=== PATIENT | female | born 1965 | race Caucasian/White ===

== ENCOUNTER 2017-03-23 13:04 | Day surgery (SDC) | payer OTHER ==
[~2017-03-23] VITALS: Ht 162.6 cm; Wt 65.0 kg
[~2017-03-23 13:04] MED LIST: LORC10TA PO; NEXI40CA PO
[2017-03-23] MEDS ORDERED: ALIG4CAP PO (13:47)
[2017-03-23] MEDS ORDERED: SILD20TA11 PO (13:47)
[2017-03-23] MEDS ORDERED: SYNT175T PO (13:47)
[2017-03-23] MEDS ORDERED: DOXY100C PO (13:47)
[2017-03-23] MEDS ORDERED: VITA2000 PO (13:47)
[2017-03-23] MEDS ORDERED: ASPI1CHW4 CHEW (13:47)
[2017-03-23] MEDS ORDERED: LINA145C PO (13:47)
[2017-03-23] MEDS ORDERED: FURO1TAB60 PO (13:47)
[2017-03-23] MEDS ORDERED: FAMO1TAB37 PO (13:47)
[2017-03-23] MEDS ORDERED: CITRTAB11 PO (13:47)
[2017-03-23] MEDS ORDERED: DEXI60CA3 (13:47)
[2017-03-23] MEDS ORDERED: FLEC1TAB8 PO (13:47)
[2017-03-23] MEDS ORDERED: GABA100C4 PO (13:47)
[2017-03-23] MEDS ORDERED: POTA10CA PO (13:47)
[2017-03-23 13:48] VITALS: BP 138/92; PULSE 71; RESP 16; TEMP 98.2; O2SAT 100
[2017-03-23] MEDS ORDERED: SODIUM CHLORID 0.9% 500 ML INJ 500 ML IV SCH (14:00)
[2017-03-23] MEDS ORDERED: METOPROLOL TARTRATE 25 MG TAB PO PRN (14:00)
[2017-03-23] MEDS ORDERED: CHLORHEXIDINE GLUCONATE 2 % 1 PACK (2 CLOTHS) TOPICAL PRN (14:00)
[2017-03-23] MEDS ORDERED: POVIDONE IODINE 5% (ANTISEPSIS KIT) 4 APPLICATIONS EACH NARE PRN (14:00)
[2017-03-23] MEDS ORDERED: LACTATED RINGER'S 1000 ML IV PRN (14:00)
[2017-03-23] MEDS ORDERED: SODIUM CHLORID 0.9% 500 ML IV PRN (14:00)
[2017-03-23] MEDS ORDERED: LORazepam 1 MG TAB SL SCH (14:00)
[2017-03-23 14:28] LABS: BASOPHIL # 0.1 TH/MM3 (0-0.2); BASOPHIL % 0.7 % (0.0-2.0); EOSINOPHIL # 0.1 TH/MM3 (0-0.4); EOSINOPHIL % 1.1 % (0.0-4.0); HEMATOCRIT 42.8 % (35.0-46.0); HEMO FLAGS DIFF FINAL; LYMPHOCYTE # 2.2 TH/MM3 (1.0-4.8); MEAN CELL VOLUME 92.1 FL (80.0-100.0); MEAN CORPUSCULAR HEMOGLOBIN 30.5 PG (27.0-34.0); MEAN CORPUSCULAR HGB CONC 33.1 % (32.0-36.0); MONO % 5.5 % (0.0-8.0); NEUT % 67.7 % (16.0-70.0); PLATELET COUNT 318 TH/MM3 (150-450); RED BLOOD COUNT 4.65 MIL/MM3 (4.00-5.30); RED CELL DISTRIBUTION WIDTH 14.3 % (11.6-17.2); WHITE BLOOD COUNT 8.9 TH/MM3 (4.0-11.0)
[2017-03-23 14:41] LABS: APTT (PATIENT) 29.2 SEC (24.3-30.1); INTERNATIONAL NORMALIZED RATIO 1.1 RATIO; PROTHROMBIN TIME - PATIENT 11.1 SEC (9.8-11.6)
[2017-03-23 14:54] LABS: BICARBONATE 30.9 MEQ/L (21.0-32.0); POTASSIUM 3.3 MEQ/L (3.5-5.1)
[2017-03-23] MEDS ORDERED: HEPARIN-NS/PF INJ 1,000 ML ONE (15:23)
[2017-03-23] MEDS ORDERED: SODIUM CHLOR 0.9% 250 ML INJ 250 ML ONE (16:32)
[2017-03-23] MEDS ORDERED: ISOPROTERENOL HCL 1 MG/5 ML AMP ONE (16:33)
--- NOTE | 2017-03-23 16:51 | CATHPROC ---
[facility] HIS Report Study Information Study Number Admission Scheduled Start Study Start [id number] Mar 23 2017 1:04PM 03/23/2017 Mar 23 2017 2:50PM [place] [facility] Electrophysiology Study Admit Source Facility Department Other [facility] - [employer] Physician and Clinical Staff Initial Tashia Aguirre Patrol Police Lieutenant Zara Bass,RT(R) TECH2 Patrol Police Lieutenant Linda Scott,SOLE EDGE INKER MACHINE TECH2 Other Anesthesia, CHICKEN SEXER Recorder Juanita Cohn,MONICA Recorder Edna Lowery,MONICA Scrub Julio Watson,RT(R) Equipment Time Recycling Assistant Description Size Mfg Part Number Used/Scraped [id number] 15:40 BUNDLE-[employer] CATHETER, JSN, QUAD BUNDLE FR 5 *[id number] Used BUNDLE [id number] 15:41 BUNDLE-[employer] CATHETER, JSN, QUAD BUNDLE FR 5 *[id number]- Used BUNDLE [id number] 15:41 BUNDLE-[employer] CATHETER, JSN, QUAD BUNDLE FR 5 *[id number]- Used BUNDLE [id number] 15:41 BUNDLE-[employer] CATHETER, JSN, QUAD BUNDLE FR 5 *[id number]- Used BUNDLE [id number] 14:56 MEDLINE IND[employer]ES PACK, CCL CUSTOM * Used *[id number] 14:56 MEDLINE PACER CORTÉS, LIMB * 2530 *[id number] Used [id number] 14:56 [employer] MEDICAL BLANKET,WARM AIR CCL * Used *[id number] 14:56 [employer] MEDICAL ELECTRODE KIT, SUZETTE X SURFACE * Used *[id number] 15:42 [employer] MED[employer] SHEATH, EPS, FR5 FAST CATH FR 5 Used *[id number] 15:42 [employer] MED[employer] SHEATH, EPS, FR5 FAST CATH FR 5 Used *[id number] 15:42 [employer] MEDICAL SHEATH, EPS, FR5 FAST CATH FR 5 Used *[id number] 15:42 [employer] MED[employer] SHEATH, EPS, FR6 FAST CATH FR 6 Used *[id number] 15:42 [employer] MED[employer] SHEATH, EPS, FR8 FAST CATH FR 8 Used *[id number] [facility] PAD, ELECTROSURGICAL 14:56 * [id number] *[id number] Used SURGICAL GROUNDING (BLUE) History: Allergies Allergy Reaction Sulfa (Sulfonamide Antibiotics) sucralfate latex History: Risk Factors Dyslipidemia Previous [facility] Yes Yes Diabetes Labs Hgb (g/dl) Hct (%) RBC (MIL/MM3) WBC (l/cumm) Platelets (thousands) 11.60-17.00 35.00-51.00 4.00-5.90 4.00-11.00 150.00-450.00 14.0 42 6.5 8.9 318 Glucose (mg/dl) BUN (mg/dl) Creatinine (mg/dl) BUN:Creatinine (1:x) 74.00-106.00 7.00-18.00 0.50-1.30 10.00-20.00 70 11 0.8 13.8 Na (meq/l) K (meq/l) Cl (meq/l) CO2 (mmol/L) Ca (mg/dl) 136.00-145.00 3.50-5.10 98.00-107.00 21.00-32.00 8.50-10.10 141 3.3 102 30.9 8.1 PT (sec) PTT (sec) INR (PTT:PT) 9.80-11.60 24.30-30.10 0.90-1.10 11 29 1.1 Medication Medication Total Dose (Bolus/Oral) Medication Total Dosage/Unit 1% XYLOCAINE 40 mL Medications (Bolus/Oral) Medication Time Given Dosage/Unit Administered By Reason 1% XYLOCAINE 03/23/2017 4:17:47 PM 20 mL Tashia Estevez 20 mL 1% XYLOCAINE given in lab by Tashia Estevez in Left Groin via Subcutaneous. Ordered by Al Estevez. 1% XYLOCAINE 03/23/2017 4:21:30 PM 20 mL Tashia Estevez 20 mL 1% XYLOCAINE given in lab by Tashia Estevez in Right Groin via Subcutaneous. Ordered by Ramona Estevez. Medication (Drip) Medication Time Given Dosage/Unit Concentration/Unit Diluent (ml) Solution ISUPREL 03/23/2017 4:35:45 PM 2 mcg/min 1 mg 250 NaCl .9 2 mcg/min ISUPREL given in lab by Tashia Estevez via Peripheral IV. Pump/Drip Flow = 30 ml/hr using Na Cl .9 with a concentration of 1 mg in 250 ml. Ordered by Tashia Estevez. Reason: As per physicians verbal order. Initial Case Assessment Cardiovascular HR Rhythm NIBP Chest Pain 67 reg 121/67 0 Edema Present Skin color Skin None Normal Warm Dry Circulatory - Right Pulses Dorsalis Pedis 1 Scale (0,1,2,3,4,d) Circulatory - Left Pulses Dorsalis Pedis 1 Scale (0,1,2,3,4,d) Circulatory - Lower Extremities Color Lower Right Color Lower Left Normal Normal Neurological State Oriented to time-place- Alert Moves all extremities person Respiration - General Respiration Rate SpO2 (%) (B/min) 20 97 Final Case Assessment Cardiovascular HR Rhythm NIBP Chest Pain 94 sr 101/58 0 Edema Present Skin color Skin None Normal Warm Dry Circulatory - Right Pulses Dorsalis Pedis 1 Scale (0,1,2,3,4,d) Circulatory - Left Pulses Dorsalis Pedis 1 Scale (0,1,2,3,4,d) Circulatory - Lower Extremities Color Lower Right Color Lower Left Normal Normal Neurological State Lethargic Moves all extremities Respiration - General Respiration Rate SpO2 (%) O2 (lpm) (B/min) 14 97 6 Chronological Log Time Study Chronological Log 15:02:00 Dr. Estevez notified of labs. 15:25:48 Patient arrived via Bed. 15:25:49 Patient Name, D.O.B, / Armband Verified By R.N. 15:25:50 Consent signed by the physician and the patient and verified by the [employer] staff. 15:25:50 Pre-op and post- op instructions given; patient acknowledges understanding of instructions. 15:25:51 Verbal Stimulation=2 Physical Stimulation=2 Airway=2 Respiration=2 TOTAL=8. (0=absent, 1=li mited, 2=present) 15:26:00 Patient has been NPO for More than 6Hrs. 15:26:01 Skin Breakdown- legs reddened 15:26:08 Patient Warmer Placed on the Table. 15:26:09 Disposable Defibrillator Pads Placed On Patient. 15:26:09 Yue Prominences Protected 15:26:11 A # 20 IV was noted in the Forearm (left). Grade = 0 0.9ns kvo 15:26:25 A # 20 IV was noted in the Forearm (right). Grade = 0 0.9ns kvo 15:26:40 History and physical on the chart. Assessment: Initial Case, HR=67 BPM, Rhythm=reg, XGXA=664/67 mmhg, Chest Pain=0, Edema=None, Co mary lou=Normal, Skin = Warm, Dry Right Pulses: Seb Ped=1 Left Pulses: Seb Ped=1 15:35:15 Lower Right Extremities: Color=Normal Lower Left Extremities: Color=Normal Neurological: State=Alert, Ox3, MOTTA Respiration: Resp=20 B/min, SpO2=97 % 15:38:41 Table restraints applied according to hospital policy 15:42:50 [facility] Rep Shital present for case - device disabled for procedure per Dr. Estevez. 15:45:08 Reference ECG taken 15:45:09 Bilateral groins prepped with 2% chlorhexidine, and draped after a 3 minute waiting time. 15:48:16 Sterile drape applied. 15:57:02 Anesthesia at bedside. Assumes care of patient. 16:10:14 MD paged 16:13:01 MD arrived. Time Out. Correct patient, procedure, procedure equipment, site and side verified with physicia n present. Time 16:17:05 concurred by MD, individual staff and CHICKEN SEXER. Time Out #2 - Consents verified, patient in correct position, all results are labled and displa yed, safety precautions 16:17:29 taken, antibiotics administered. Time out concurred by MD, individual staff and CHICKEN SEXER in procedu re 16:17:42 Case Start 16:17:47 20 mL 1% XYLOCAINE given in lab by Tashia Estevez in Left Groin via Subcutaneous. Ordered by Tashia Estevez. 16:19:25 Vascular access was obtained in the Fem Vein (left). 16:19:28 Vascular access was obtained in the Fem Vein (left). 16:19:29 Vascular access was obtained in the Fem Vein (left). 16:19:32 A SHEATH, EPS, FR5 FAST CATH FR 5 was advanced into the Fem Vein (left) using the Modified Seldinger technique. 16:19:33 A SHEATH, EPS, FR5 FAST CATH FR 5 was advanced into the Fem Vein (left) using the Modified Seldinger technique. 16:19:34 A SHEATH, EPS, FR5 FAST CATH FR 5 was advanced into the Fem Vein (left) using the Modified Seldinger technique. 16:21:30 20 mL 1% XYLOCAINE given in lab by Tashia Estevez in Right Groin via Subcutaneous. Ordered b y Tashia Estevez. 16:21:39 Vascular access was obtained in the Fem Vein (right). 16:21:42 Vascular access was obtained in the Fem Vein (right). 16:21:47 A SHEATH, EPS, FR6 FAST CATH FR 6 was advanced into the Fem Vein (right) using the Modified Seldinger technique. 16:22:01 A SHEATH, EPS, FR8 FAST CATH FR 8 was advanced into the Fem Vein (right) using the Modified Seldinger technique. A CATHETER, JSN, QUAD BUNDLE FR 5 was advanced vis Fem Vein (right) and placed in the CS. Place ment was 16:24:31 visually confirmed under fluoroscopy. A CATHETER, JSN, QUAD BUNDLE FR 5 was advanced vis Fem Vein (right) and placed in the HIS. Plac ement was 16:24:54 visually confirmed under fluoroscopy. A CATHETER, JSN, QUAD BUNDLE FR 5 was advanced vis Fem Vein (right) and placed in the HRA. Plac ement was 16:25:05 visually confirmed under fluoroscopy. A CATHETER, JSN, QUAD BUNDLE FR 5 was advanced vis Fem Vein (right) and placed in the RVA. Plac ement was 16:25:19 visually confirmed under fluoroscopy. 16:26:29 EP study in progress. 2 mcg/min ISUPREL given in lab by Tashia Estevez via Peripheral IV. Pump/Drip Flow = 30 ml/hr us ing NaCl .9 with a 16:35:45 concentration of 1 mg in 250 ml. Ordered by Tashia Estevez. Reason: As per physicians verbal ord er. 16:43:31 Isuprel off. 16:43:50 EP Procedure was performed. Eps only. 16:45:00 Catheter(s) removed without difficulty 16:45:12 DOCU called. Spoke to Bisi 16:45:15 Bedside Report will be given. 16:45:47 Sheath(s) left in place, secured, 0.9ns kvo connected and will be removed in Holding Area 16:46:05 Case End 16:46:07 No case complications noted. 16:46:11 Cine recording checked. Assessment: Final Case, HR=94 BPM, Rhythm=sr, PIPW=774/58 mmhg, Chest Pain=0, Edema=None, [place] r=Normal, Skin = Warm, Dry Right Pulses: Seb Ped=1 Left Pulses: Seb Ped=1 16:46:39 Lower Right Extremities: Color=Normal Lower Left Extremities: Color=Normal Neurological: State=Lethargic, MOTTA Respiration: Resp=14 B/min, SpO2=97 %, O2=6 lpm 16:52:31 Patient moved to stretcher 16:55:17 Defibrillator and ground pads removed. Skin intact. End Study - Contrast Media Used In Study Contrast Total Opened (mL) Total Used (mL) Total Wasted (mL) Unspecified 0 0 0 End Study - Maximum Contrast Load Max Contrast Load (mL) 406.3 End Study - Radiation Exposure Fluoro Time (minutes) 1.1 End Study - Patient Disposition Complications Transferred To Interventional Outcome No Telemetry Bed successful
[2017-03-23] MEDS ORDERED: METOCLOPRAMIDE HCL 10 MG/2 ML VIAL IV PUSH PRN (17:00)
[2017-03-23] MEDS ORDERED: BACITRACIN OINT 0.9 GM PKT TOP ONE (17:00)
[2017-03-23] MEDS ORDERED: ATROPINE SULFATE 1 MG/ML VIAL IV PUSH PRN (17:00)
[2017-03-23] MEDS ORDERED: oxyCODONE/ACETAMINOPHEN 5 MG/325 MG TAB PO PRN ×2 (17:00)
[2017-03-23] MEDS ORDERED: ONDANSETRON HCL 4 MG/2 ML VIAL IV PUSH PRN (17:00)
[2017-03-23] MEDS ORDERED: LIDOCAINE HCL 1% 50 ML VIAL INFIL PRN (17:00)
[2017-03-23] MEDS ORDERED: SODIUM CHLOR 0.9% 250 ML INJ 250 ML IV PRN (17:00)
[2017-03-23] MEDS ORDERED: LORazepam 2 MG/ML VIAL IV PUSH PRN (17:00)
--- NOTE | 2017-03-23 18:42 | MA ---
cc: KAIN GLASS M.D. DATE 03/23/2017 Electrophysiology study, CS cannulation, repeat electrophysiology study on Isuprel infusion. INDICATION Mrs. Watson is a 51-year-old female, previous defibrillator implanted, episode of tachyarrhythmia recorded referred for electrophysiology study and possible ablation. The risks, the nature and the benefit of the procedure are clearly stated to her. The risks include pneumothorax, cardiac perforation, stroke, need for open heart surgery and even . The patient understand and agreed to proceed. PROCEDURE After written informed consent was obtained, the patient was brought to the EP lab where she was prepped and draped in the usual sterile fashion. Conscious sedation was initiated and maintained throughout the procedure by anesthesiologist. Once sedation verified, the right and left inguinal areas were anesthetized with 2% Xylocaine. Using modified Seldinger technique, the right femoral vein was cannulated on three occasions and three guidewires were advanced. Over the wire three 5-Afghan Hemaquets were advanced. Then the right femoral vein was cannulated on two occasions and two guidewire were advanced. Over the wire a 6 and 8-Afghan Hemaquet were advanced. Then under fluoroscopic guidance through the 5 and 6-Afghan Hemaquet, four 5-Afghan Zeina curved quadripolar electrophysiology catheters were advanced and positioned on the His, upper right atrium, coronary sinus and right ventricular apex. Basic interval was measured. HV was prolonged around 86 milliseconds. Then atrial pacing protocol was performed. Atrial pacing protocol consisted of incremental atrial pacing as well as programmed stimulation with 1400 cycle length and up to one excess stimuli delivered. No tachyarrhythmia was induced. Pacing from the coronary sinus, no tachyarrhythmia was induced. Then ventricular pacing protocol was performed. There was VA conduction at baseline. Ventricle pacing protocol consisted of incremental ventricular pacing as well as programmed stimulation with 1400 cycle length and up to one extra stimuli delivered. No tachyarrhythmia was induced. Then Isuprel infusion was initiated. Atrial ventricular pacing protocol was performed. No tachyarrhythmia was induced. Post Isuprel no tachyarrhythmia was induced. At that point procedure was complete. All catheters were removed. The patient going to be transferred to the telemetry unit. No incident to report. The patient tolerated the procedure. Blood loss minimal. IMPRESSION 1. Electrocardiogram. At baseline the patient was in sinus rhythm. Postprocedure electrocardiogram was unchanged. 2. Basic interval. Base cycle length was around 840, AH at 114, HV around 85 milliseconds. 3. Atrial pacing protocol. Wenckebach was high around 520 milliseconds. ERP of the node at baseline was 600, 440 milliseconds. No tachyarrhythmia was induced. 4. Ventricular pacing protocol but there was no VA at baseline on Isuprel. No tachyarrhythmia was induced. CONCLUSION 1. Infra His disease. 2. Negative electrophysiology study for supra and ventricular tachyarrhythmia. COMMENT AND RECOMMENDATIONS The patient going to be transferred to the recovery room. The defibrillator was reprogrammed, defibrillatory portion on. The patient will be observed and discharged home later today. MD RENNY Stevens/HARPREET /5:15 PM /6:26 PM
--- NOTE | 2017-03-24 17:19 | EKG ---
Date Performed: 03/23/2017 Time Performed: 13:59:34 PTAGE: 51 years EKG: Normal Sinus rhythm with first degree AV block. Premature ventricular and atrial contractions. Left axis deviation RBBB with left anterior fascicular block Low QRS voltages in precordial leads Prolonged corrected QT inter [place]. Abnormal ECG NO PREVIOUS TRACING DOCTOR: Harry Lopez Interpretating Date/Time 03/24/2017 17:17:55
== END 2017-03-23 19:30 | disposition home or self-care (01) ==
LOC: HDOC 13:04 → HDIC 13:04 → HDOC 19:30
PROVIDERS: ATTEND Internal Medicine Interventional Cardiology
DX: I47.1 Supraventricular tachycardia (principal); I47.2 Ventricular tachycardia; Z95.810 Presence of automatic (implantable) cardiac defibrillator
CPT/HCPCS: 00537; 80048; 85025; 85610; 85730; 86850; 86900; 86901; 93005; 93613; 93623; 93653; C1730; C1732; C2630; J1644; J7050